=== PATIENT | male | born 1965 | race Caucasian/White ===

== ENCOUNTER 2021-12-01 15:16 | Emergency (ER) | payer OTHER ==
[~2021-12-01 15:16] MED LIST: AUGMENTIN 875-1 EACH PO; CLEOCIN HCL150 MG PO; PERCOCET 5/325 T1 EA PO
[2021-12-01 17:03] LABS: HEMOGLOBIN 14.2 gm/dl (14.0-17.5); RED BLOOD COUNT 4.91 M/UL (4.20-5.50); WHITE BLOOD COUNT 8.2 K/UL (4.5-11.0)
[2021-12-01 17:37] LABS: BUN/CREATININE RATIO 17 (0-10)
== END 2021-12-01 19:35 | disposition home or self-care (01) ==
LOC: ER1 15:16
PROVIDERS: Nurse Practitioner
DX: R07.89 Other chest pain (principal); I10 Essential (primary) hypertension; Z88.0 Allergy status to penicillin; Z88.6 Allergy status to analgesic agent; Z88.5 Allergy status to narcotic agent
CPT/HCPCS: 71045; 80053; 81001; 82550; 82553; 83880; 84484; 85025; 85379; 93005; 99285